=== PATIENT | male | born 1980 | race Caucasian/White ===

== ENCOUNTER 2017-08-24 08:12 | Emergency (ER) | payer BC, OTHER ==
[~2017-08-24] VITALS: Ht 177.8 cm; Wt 121.9 kg
[~2017-08-24 08:12] MED LIST: LORT5TAB PO; PHEN12.5 PO; TAMS0.4C67 PO; Z.0.NO CURRENT MEDS
[2017-08-24 08:20] VITALS: BP 149/96; PULSE 78; RESP 18; TEMP 97.8; O2SAT 100
[2017-08-24] MEDS ORDERED: SODIUM CHLOR 0.9% 1000 ML INJ 1,000 ML IV SCH (08:28)
[2017-08-24] MEDS ORDERED: SODIUM CHLORIDE 0.9% FLUSH 10 ML FLUSH IV FLUSH PRN (08:30)
--- NOTE | 2017-08-24 08:32 | PD ---
HPI Chief Complaint: Flank/Kidney Pain Time Seen by Provider: 08:19 Travel History International Travel<30 days: No Contact w/Intl Traveler<30days: No History of Present Illness HPI Patient presents to the emergency department with a history of kidney stones and complaining of left lower flank pain that began at 730 this morning. States the pain feels like a kidney stone pain. Is described as being 8 out of 10, constant, nonradiating, throbbing in character, no alleviating or aggravating factors. He denies fever, chills, vomiting, dysuria, hematuria, penile discharge, he reports nausea. PFSH Past Medical History Diminished Hearing: No Gastrointestinal Disorders: Yes (GALLBLADDER PROBLEMS) Kidney Stones: Yes Past Surgical History Cholecystectomy: Yes Social History Alcohol Use: No Tobacco Use: No Substance Use: No (PT STATES "NO") Allergies-Medications (Allergen,Severity, Reaction): Coded Allergies: No Known Allergies (Verified Adverse Reaction, Unknown, 08/24/17) Reported Meds & Prescriptions Reported Meds & Active Scripts Active [place] (Hydrocodone-Acetaminophen) 5 Mg-325 Mg Tab 1 Tab PO Q6H PRN 3 Days Flomax (Tamsulosin HCl) 0.4 Mg Cap 0.4 Mg PO HS 30 Days Reported Methotrexate 2.5 Mg Tab 17.5 Mg PO Q7D Folic Acid 1 Mg Tablet 1 Tab PO EVERY DAY BUT TUES Prednisone 5 Mg Tab 5 Mg PO DAILY Humira 2-Pack Inj (Adalimumab 2-Pack Inj) 40 Mg/0.8 Ml Syr 40 Mg SQ Q14D Review of Systems Except as stated in HPI: all other systems reviewed are Neg Physical Exam Narrative GENERAL: No acute distress. SKIN: Psoriasis sternal area HEAD: Atraumatic. Normocephalic. EYES: Ocular muscles intact. No scleral icterus. No injection or drainage. ENT: No nasal bleeding or discharge. Mucous membranes pink and moist. NECK: Trachea midline. No JVD. CARDIOVASCULAR: Regular rate and rhythm. No murmur appreciated. RESPIRATORY: No accessory muscle use. Clear to auscultation. Breath sounds equal bilaterally. GASTROINTESTINAL: Abdomen soft, non-tender, nondistended. Hepatic and splenic margins not palpable. No CVA tenderness. MUSCULOSKELETAL: No obvious deformities. No clubbing. No cyanosis. No edema. NEUROLOGICAL: Awake and alert. No obvious cranial nerve deficits. Motor grossly within normal limits. Normal speech. PSYCHIATRIC: Appropriate mood and affect; insight and judgment normal. Data Data Last Documented VS Vital Signs Date Time Temp Pulse Resp B/P (MAP) Pulse Ox O2 Delivery O2 Flow Rate FiO2 08/24/17 10:34 78 18 111/63 (79) 99 Room Air 08/24/17 08:20 97.8 Orders Orders Complete Blood Count With Diff (08/24/17 08:28) Comprehensive Metabolic Panel (08/24/17 08:28) Prothrombin Time / Inr (Pt) (08/24/17 08:28) Act Partial Throm Time (Ptt) (08/24/17 08:28) Urinalysis - C+S If Indicated (08/24/17 08:28) Ct Abd/Pel W/O Iv Contrast (08/24/17 08:28) Iv Access Insert/Monitor (08/24/17 08:28) Ecg Monitoring (08/24/17 08:28) Oximetry (08/24/17 08:28) Sodium Chlor 0.9% 1000 Ml Inj (Ns 1000 M (08/24/17 08:28) Sodium Chloride 0.9% Flush (Ns Flush) (08/24/17 08:30) Ketorolac Inj (Toradol Inj) (08/24/17 09:30) Sodium Chlor 0.9% 1000 Ml Inj (Ns 1000 M (08/24/17 09:30) Labs Laboratory Tests Test 08/24/17 08:25 08/24/17 08:55 08/24/17 09:50 White Blood Count 8.8 TH/MM3 Red Blood Count 5.34 MIL/MM3 Hemoglobin 16.0 GM/DL Hematocrit 46.6 % Mean Corpuscular Volume 87.3 FL Mean Corpuscular Hemoglobin 29.9 PG Mean Corpuscular Hemoglobin Concent 34.3 % Red Cell Distribution Width 14.2 % Platelet Count 271 TH/MM3 Mean Platelet Volume 8.4 FL Neutrophils (%) (Auto) 61.2 % Lymphocytes (%) (Auto) 29.2 % Monocytes (%) (Auto) 6.4 % Eosinophils (%) (Auto) 2.5 % Basophils (%) (Auto) 0.7 % Neutrophils # (Auto) 5.3 TH/MM3 Lymphocytes # (Auto) 2.6 TH/MM3 Monocytes # (Auto) 0.6 TH/MM3 Eosinophils # (Auto) 0.2 TH/MM3 Basophils # (Auto) 0.1 TH/MM3 CBC Comment DIFF FINAL Differential Comment Prothrombin Time 10.1 SEC Prothromb Time International Ratio 1.0 RATIO Activated Partial Thromboplast Time 24.7 SEC Blood Urea Nitrogen 15 MG/DL Creatinine 0.97 MG/DL Random Glucose 95 MG/DL Total Protein 7.0 GM/DL Albumin 3.6 GM/DL Calcium Level 8.7 MG/DL Alkaline Phosphatase 72 U/L Aspartate Amino Transf (AST/SGOT) 29 U/L Alanine Aminotransferase (ALT/SGPT) 73 U/L Total Bilirubin 0.3 MG/DL Sodium Level 140 MEQ/L Potassium Level 3.8 MEQ/L Chloride Level 107 MEQ/L Carbon Dioxide Level 27.1 MEQ/L Anion Gap 6 MEQ/L Estimat Glomerular Filtration Rate 87 ML/MIN Urine Collection Type CLEAN CATCH Urine Color YELLOW Urine Turbidity CLEAR Urine pH 5.0 Urine Specific [place] 1.025 Urine Protein NEG mg/dL Urine Glucose (UA) NEG mg/dL Urine Ketones NEG mg/dL Urine Occult Blood LARGE Urine Nitrite NEG Urine Bilirubin NEG Urine Urobilinogen 0.2 MG/DL Urine Leukocyte Esterase NEG Urine RBC 100-200 /hpf Urine WBC 0-2 /hpf Urine Squamous Epithelial Cells 0-5 /hpf Microscopic Urinalysis Comment CULT NOT INDICATED Urine Collection Time 09:50 MDM Medical Decision Making Medical Screen Exam Complete: Yes Emergency Medical Condition: Yes Interpretation(s) Labs: CBC/chem/coags within normal limits, ua: + blood FINDINGS: Right side: No evidence of hydronephrosis. There are 2 nonobstructing stones mid and lower pole collecting system measuring 3 mm in size. No calcifications in the right ureter. Normal dimension right ureter. Left side mild dilation of the collecting system of the left kidney down to a 3 mm obstructing stone in the proximal left ureter. There is one other 4 mm calcified stone in the midpole collecting system. Bladder: Nondistended. No calcifications within the lumen. Other: No dilated loops of small or large bowel. The appendix is identified in the right lower quadrant has a normal appearance. Cholecystectomy. CONCLUSION: 1. 3 mm obstructing stone in the proximal left ureter. 2. Additional calcified stones in the midpole of the left kidney and in the mid and lower pole of the right kidney. Differential Diagnosis Pyelonephritis, UTI, kidney stone, musculoskeletal pain, Narrative Course Patient presents to the emergency department complaining of left lower flank pain with a positive history of kidney stones. Placed on the cardiopulmonary monitor, IV access obtained. He is not requesting pain medication right now. Labs and CT scan were ordered. 0928: CT resulted and patient states pain is returning. Written for 30 mg IV Toradol and another liter IV fluids. Awaiting urine specimen to send for UA. 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 Recommend urine strainer, pain meds, Flomax for 30 days, and call office on Friday for follow-up appointment. Diagnosis Primary Impression: Kidney stone on left side Additional Impression: Kidney stone on right side Referrals: Magdiel Paula MD Additional Instructions: 1. Meds as directed. 2. Call Dr. Paula, urology, on Friday for follow-up appointment. 3. Urine strainer. 4. Return to ER immediately for fever, vomiting, inability to urinate, abdominal pain, or for any new/worrisome/ worsening symptoms Med/Other Pt SpecificInfo: Prescription(s) given Scripts Hydrocodone-Acetaminophen ([place]) 5 Mg-325 Mg Tab 1 TAB PO Q6H Y for PAIN for 3 Days, #12 TAB 0 Refills Prov: Adrienne Flor MD 08/24/17 Tamsulosin (Flomax) 0.4 Mg Cap 0.4 MG PO HS for Manage Prostate Problems for 30 Days, #30 CAP 0 Refills Prov: Adrienne Flor MD 08/24/17 Disposition: 01 DISCHARGE HOME Condition: Stable Adrienne Flor MD August 24, 2017 08:32
[2017-08-24] MEDS ORDERED: METH2.5T PO (08:37)
[2017-08-24] MEDS ORDERED: FOLI1TAB6 PO (08:37)
[2017-08-24] MEDS ORDERED: HUMI40KI SQ (08:37)
[2017-08-24] MEDS ORDERED: PRED5TAB PO (08:37)
[2017-08-24 08:46] LABS: AUTOMATED NEUTROPHIL # 5.3 TH/MM3 (1.8-7.7); BASOPHIL # 0.1 TH/MM3 (0-0.2); BASOPHIL % 0.7 % (0.0-2.0); EOSINOPHIL # 0.2 TH/MM3 (0-0.4); EOSINOPHIL % 2.5 % (0.0-4.0); HEMATOCRIT 46.6 % (39.0-51.0); LYMPH % 29.2 % (9.0-44.0); LYMPHOCYTE # 2.6 TH/MM3 (1.0-4.8); MEAN CELL VOLUME 87.3 FL (80.0-100.0); MEAN CORPUSCULAR HEMOGLOBIN 29.9 PG (27.0-34.0); MEAN CORPUSCULAR HGB CONC 34.3 % (32.0-36.0); MEAN PLATELET VOLUME 8.4 FL (7.0-11.0); MONO % 6.4 % (0.0-8.0); MONOCYTE # 0.6 TH/MM3 (0-0.9); NEUT % 61.2 % (16.0-70.0); PLATELET COUNT 271 TH/MM3 (150-450); RED BLOOD COUNT 5.34 MIL/MM3 (4.50-5.90); RED CELL DISTRIBUTION WIDTH 14.2 % (11.6-17.2); WHITE BLOOD COUNT 8.8 TH/MM3 (4.0-11.0)
[2017-08-24 08:51] VITALS: RESP 18; O2SAT 100
[2017-08-24 08:58] LABS: PROTHROMBIN TIME - PATIENT 10.1 SEC (9.8-11.6)
[2017-08-24 09:01] VITALS: BP 117/61; PULSE 80; RESP 16; O2SAT 99
[2017-08-24 09:13] LABS: CHLORIDE 107 MEQ/L (98-107); SODIUM (NA) 140 MEQ/L (136-145)
[2017-08-24 09:16] LABS: CALCIUM 8.7 MG/DL (8.5-10.1)
[2017-08-24 09:17] LABS: ALBUMIN 3.6 GM/DL (3.4-5.0); BICARBONATE 27.1 MEQ/L (21.0-32.0); BLOOD UREA NITROGEN 15 MG/DL (7-18); GLUCOSE,RANDOM 95 MG/DL (74-106)
[2017-08-24 09:20] LABS: ALT (GPT) 73 U/L (12-78); AST (GOT) 29 U/L (15-37); CREATININE 0.97 MG/DL (0.60-1.30); GLOMERULAR FILTRATION RATE 87 ML/MIN (>89)
--- NOTE | 2017-08-24 09:20 | RADRPT ---
EXAM DATE/TIME: 08/24/2017 08:42 [facility] COMPARISON: No previous studies available for comparison. INDICATIONS : Left flank pain and difficulty urinating. ORAL CONTRAST: No oral contrast ingested. RADIATION DOSE: 23.72 CTDIvol (mGy) MEDICAL HISTORY : Renal calculi. SURGICAL HISTORY : Cholecystectomy. ENCOUNTER: Initial ACUITY: 2 days PAIN SCALE: 5/10 LOCATION: Left flank TECHNIQUE: Renal colic protocol. Volumetric scanning of the abdomen and pelvis was performed. Using automated exposure control and adjustment of the mA and/or kV according to patient size, radiation dose was kep t as low as reasonably achievable to obtain optimal diagnostic quality images. DICOM format image da ta is available electronically for review and comparison. FINDINGS: Right side: No evidence of hydronephrosis. There are 2 nonobstructing stones mid and lower pole collecting syste m measuring 3 mm in size. No calcifications in the right ureter. Normal dimension right ureter. Left side mild dilation of the collecting system of the left kidney down to a 3 mm obstructing stone in the proximal left ureter. There is one other 4 mm calcified stone in the midpole collecting syste m. Bladder: Nondistended. No calcifications within the lumen. Other: No dilated loops of small or large bowel. The appendix is identified in the right lower quadrant has a normal appearance. Cholecystectomy. CONCLUSION: 1. 3 mm obstructing stone in the proximal left ureter. 2. Additional calcified stones in the midpole of the left kidney and in the mid and lower pole of the right kidney. Edgar Strauss MD on August 24, 2017 at 9:15 Board Certified Radiologist. This report was verified electronically.
[2017-08-24 09:22] LABS: TOTAL BILIRUBIN ADULT 0.3 MG/DL (0.2-1.0)
[2017-08-24 09:23] LABS: ALKALINE PHOSPHATASE 72 U/L (45-117)
[2017-08-24] MEDS ORDERED: KETOROLAC TROMETHAMINE 30 MG/ML (IVP) VIAL IV PUSH ONE (09:30)
[2017-08-24] MEDS ORDERED: SODIUM CHLOR 0.9% 1000 ML INJ 1,000 ML IV ONE (09:30)
[2017-08-24 10:03] LABS: BILIRUBIN, URINE NEG (NEG); BLOOD, URINE LARGE (NEG); GLUCOSE,URINE NEG (NEG); KETONE, URINE NEG (NEG); NITRITE,URINE NEG (NEG); URINE LEUKOCYTE ESTERASE NEG (NEG)
[2017-08-24 10:07] VITALS: BP 112/74; PULSE 72; RESP 16; O2SAT 99
[2017-08-24 10:11] LABS: RBC, URINE 100-200 /hpf (0-3); SQUAMOUS EPITHELIAL CELL URINE 0-5 /hpf (0-5); URINE COLOR YELLOW (YELLW/STRAW); WBC, URINE 0-2 /hpf (0-5)
[2017-08-24] MEDS ORDERED: TAMS5CAP PO (10:33)
[2017-08-24] MEDS ORDERED: NORC5TAB PO (10:33)
[2017-08-24 10:34] VITALS: BP 111/63; PULSE 78; RESP 18; O2SAT 99
== END 2017-08-24 10:47 | disposition home or self-care (01) ==
LOC: PHED 08:12
DX: N20.2 Calculus of kidney with calculus of ureter (principal)
CPT/HCPCS: 74176; 80053; 81001; 85025; 85610; 85730; 96361; 96374; 99284; J1885; J7030